=== PATIENT | male | born 1945 | race Caucasian/White ===

== ENCOUNTER → 2018-08-22 | Outpatient (CLI) | payer OTHER | LOC: FIMAGING 10:09 | PROVIDERS: ATTEND Specialist | DX: N20.0 Calculus of kidney (principal); R93.5 Abnormal findings on diagnostic imaging of other abdominal regions, including retroperitoneum ==

== ENCOUNTER 2018-11-05 07:45 | Inpatient (IN) | payer OTHER ==
[2018-11-05] MEDS ORDERED: NALOXONE HCL 0.4 MG/ML INJ IVP PRN (07:49)
[2018-11-05] MEDS ORDERED: fentaNYL 100 MCG/2 ML INJ IVP PRN (07:49)
[2018-11-05] MEDS ORDERED: MEPERIDINE 25 MG/ML SYR IVP PRN (07:49)
[2018-11-05] MEDS ORDERED: FLUMAZENIL 0.5 MG/5 ML MDV IVP PRN (07:49)
[2018-11-05] MEDS ORDERED: MIDAZOLAM 2 MG/2 ML VIAL IVP PRN (07:49)
[2018-11-05] MEDS ORDERED: NS 1,000 ML IV SCH (08:00)
[2018-11-05 08:47] LABS: INR 1.03 (0.83-1.16); PROTIME(PATIENT) 13.7 SEC (12.0-15.0)
[2018-11-05] MEDS ORDERED: diphenhydrAMINE 50 MG CAP PO ONE (08:55)
--- NOTE | 2018-11-05 09:00 | PDPROPOC ---
Sedation Plan of Care ASA Classification: ASA 2 Mallampati Score: Class 2 Mallampati Reference Image:
--- NOTE | 2018-11-05 09:00 | PDRADPRE ---
Radiology History & Physical Indication for procedure: other (kidney stone) Home medications: Finasteride [Proscar 5 MG (*)] 5 mg PO DAILY 11/06/16 [Last Taken Unknown] Ibuprofen [Motrin (*)] 200 mg PO DAILY PRN 11/06/16 [Last Taken Unknown] Potassium Citrate [Urocit-K 10meq (*)] 20 meq PO DAILY 11/06/16 [Last Taken Unknown] Glucosamine Sulfate [Glucosamine Sulfate 500 MG (*)] 500 mg PO DAILY 10/28/18 [ Last Taken Unknown] Herbals/Supplements -Info Only 1 ea PO DAILY 10/28/18 [Last Taken Unknown] Allergies/Adverse Reactions: IVP dye Allergy (Uncoded 11/06/16 11:20) Swelling/neck,face,throat Mental status: A&Ox3
[2018-11-05] MEDS ORDERED: NALOXONE HCL 0.4 MG/ML INJ ONE (09:12)
[2018-11-05] MEDS ORDERED: FLUMAZENIL 0.5 MG/5 ML MDV IVP ONE (09:13)
[2018-11-05] MEDS ORDERED: fentaNYL 100 MCG/2 ML INJ ONE ×2 (09:13→11:17)
[2018-11-05] MEDS ORDERED: MIDAZOLAM 2 MG/2 ML VIAL ONE ×2 (09:14→11:18)
[2018-11-05] MEDS ORDERED: ACETAMINOPHEN 325 MG TAB PO PRN ×2 (11:57→15:12)
[2018-11-05] MEDS ORDERED: ONDANSETRON 4 MG/2 ML VIAL IVP PRN (11:57)
[2018-11-05] MEDS ORDERED: OXYCODONE/APAP 5/325 TAB ONE (12:46)
[2018-11-05] MEDS: OXYCODONE/APAP 5/325 TAB PO PRN (12:46)
--- NOTE | 2018-11-05 13:02 | PDRADPN ---
Radiology Procedure Note Date of Procedure: 11/05/18 Radiologist: Mary Schilling Anesthesia: IV Sedation Pre-op Diagnosis: renal stones Post-op Diagnosis: same Procedure: left nephrostomy placement Inf/Abcess present in the surg proc area at time of surgery?: No
[2018-11-05] MEDS ORDERED: LIDOCAINE 1% 300 MG/30 ML SDV ONE (13:32)
[2018-11-05] MEDS ORDERED: ONDANSETRON DISINTEGRATING 4 MG TAB PO PRN (15:12)
--- NOTE | 2018-11-05 15:25 | PDGENHP ---
History and Physical - Chief Complaint Uncontrolled Pain - History of Present Illness Mr. Jose Shipley is a 73 yo M with a PMHx of nephrolithiasis who [facility] after percutaneous nephrostomy tube placement by IR this afternoon. He reports that he has a long hx of nephrolithiasis. In July he began to have L sided flank pain while on vacation in [place]. He had this kidney stone "blasted per patient". Flank pain continued, CT scans showed b/l nephrolithiasis. He had percutaneous nephrostomy tube placed on L side today by IR with plans for Urology to perform stone extraction tomorrow. Plan for R sided stones to be removed in future. Patient currently at 7/10 pain after 5 mg Percocet. Pain is sharp L sided, non-radiating. He denies chest pain, SOB, n/v, d/c, edema, headache, dysuria, hematuria. He reports hx of constipation with narcotics in the past. History Information - Allergies/Home Medication List Allergies/Adverse Reactions: IVP dye Allergy (Uncoded 11/06/16 11:20) Swelling/neck,face,throat Home Medications: Finasteride [Proscar 5 MG (*)] 5 mg PO DAILY 11/06/16 [Last Taken Unknown] Ibuprofen [Motrin (*)] 200 mg PO DAILY PRN 11/06/16 [Last Taken Unknown] Potassium Citrate [Urocit-K 10meq (*)] 20 meq PO DAILY 11/06/16 [Last Taken Unknown] Glucosamine Sulfate [Glucosamine Sulfate 500 MG (*)] 500 mg PO DAILY 10/28/18 [ Last Taken Unknown] Herbals/Supplements -Info Only 1 ea PO DAILY 10/28/18 [Last Taken Unknown] I have personally reviewed and updated: family history, medical history, social history, surgical history - Past Medical History Additional medical history: nephrolithiasis - Surgical History Reports: no pertinent surgical hx - Family History Positive for: non-pertinent - Social History Smoking Status: Never smoked Review of Systems Review of Systems: ROS: 10pt was reviewed & negative except for what was stated in HPI & below Physical Exam Physical Exam: Temp Pulse Resp BP Pulse Ox 36.7 C 101 H 16 131/84 H 94 11/05/18 13:49 11/05/18 13:49 11/05/18 13:49 11/05/18 14:17 11/05/18 14:17 O2 (L/minute) 2 Constitutional: uncomfortable Eyes: PERRL Ears, Nose, Mouth, Throat: moist mucous membranes Cardiovascular: regular rate and rhythym Respiratory: no respiratory distress Gastrointestinal: soft, non-tender abdomen Genitourinary: no bladder tenderness, other (Perc Nephrostomy tube on L side) Musculoskeletal: full muscle strength Neurologic: AAOx3 Psychiatric: interacting appropriately Lab Data & Imaging Review 11/05/18 14:03 11/05/18 08:20 Hgb 15.8 g/dL (13.7-17.5) 11/05/18 14:03 Hct 45.7 % (40.0-51.0) 11/05/18 14:03 Plt Count 199 10^3/uL (150-400) 11/05/18 08:20 PT 13.7 SEC (12.0-15.0) 11/05/18 08:20 INR 1.03 (0.83-1.16) 11/05/18 08:20 APTT 29.3 SEC (23.0-38.0) 11/05/18 08:20 Creatinine 1.1 mg/dL (0.7-1.3) 11/05/18 08:20 Estimated GFR > 60 11/05/18 08:20 Assessment & Plan Assessment: Uncontrolled Pain s/p - S/p L Percutaneous nephrostomy tube placement today by IR, discussed with Dr. Schilling this afternoon for admission - Will order PRN IV (Morphine 2-4 mg q4 hrs) and PO Pain (Percocet 5-10 mg q4 hrs) medications for pain control Nephrolithiasis - S/p L Percutaneous nephrostomy tube placement today by IR - Plan for urology to perform stone extraction tomorrow - CBC and BMP ordered, continue to trend H/H per IR - NPO at midnight - IVF overnight FEN: IVF overnight, NPO after midnight Code: FULL DVT PPx: SCDs Dispo: Pending urological procedure tomorrow, admit to observation
[2018-11-05] MEDS ORDERED: POLYETHYLENE GLYCOL 3350 17 GM PKT PO PRN (15:59)
[2018-11-05] MEDS ORDERED: BISACODYL 10 MG SUPP PR PRN (15:59)
[2018-11-05] MEDS ORDERED: LACTULOSE 20 GM/30 ML UDCUP PO PRN (15:59)
[2018-11-05] MEDS ORDERED: MAGNESIUM HYDROXIDE 30 ML UDCUP PO PRN (15:59)
[2018-11-05 16:16] LABS: PLATELET COUNT 167 10^3/uL (150-400)
[2018-11-05] MEDS: NS 1,000 ML IV SCH (18:33)
[2018-11-05] MEDS: SENNOSIDES/DOCUSATE SODIUM TAB PO SCH (20:21)
[2018-11-06] MEDS: NS 1,000 ML IV SCH ×2 (03:55→21:17)
[2018-11-06 05:15] LABS: PLATELET COUNT 173 10^3/uL (150-400)
[2018-11-06] MEDS ORDERED: NS 1,000 ML IV ONE (06:48)
[2018-11-06] MEDS ORDERED: MIDAZOLAM 2 MG/2 ML VIAL IVP ONE (07:05)
[2018-11-06] MEDS ORDERED: MINERAL OIL 10 ML VIAL ONE (07:11)
[2018-11-06] MEDS ORDERED: IOPAMIDOL (ISOVUE-300) 100 ML BTL ONE (07:11)
[2018-11-06] MEDS ORDERED: MIDAZOLAM 2 MG/2 ML VIAL ONE (07:16)
[2018-11-06] MEDS ORDERED: PROPOFOL 200 MG/20 ML VIAL ONE (07:17)
[2018-11-06] MEDS ORDERED: fentaNYL 100 MCG/2 ML INJ ONE ×3 (07:17→10:48)
[2018-11-06] MEDS ORDERED: ROCURONIUM 50 MG/5 ML VIAL ONE (07:18)
[2018-11-06] MEDS ORDERED: LIDOCAINE 2% 5 ML SDV ONE (07:18)
--- NOTE | 2018-11-06 07:25 | PDHPUP ---
History & Physical Update H&P update statement: This history and physical update is based on an assessment of the patient which was completed after admission or registration (within 24 hours), but prior to the surgery/procedure. H&P update: changes noted (Admitted last night for pain control)
--- NOTE | 2018-11-06 08:09 | PDANEPAE ---
ANE History of Present Illness Kidney stones ANE Past Medical History - Cardiovascular History Hx Hypertension: No Hx Arrhythmias: No Hx Chest Pain: No Hx Coronary Artery / Peripheral Vascular Disease: No Hx CHF / Valvular Disease: No Hx Palpitations: No - Pulmonary History Hx COPD: No Hx Asthma/Reactive Airway Disease: No Hx Recent Upper Respiratory Infection: No Hx Oxygen in Use at Home: No Hx Sleep Apnea: No Sleep Apnea Screening Result - Last Documented: Positive - Neurologic History Hx Cerebrovascular Accident: No Hx Seizures: No Hx Dementia: No - Endocrine History Hx Diabetes: No - Renal History Hx Renal Disorders: No Renal History Comment: several kidney stones - takes K+ - Liver History Hx Hepatic Disorders: No - Neurological & Psychiatric Hx Hx Neurological and Psychiatric Disorders: No - Cancer History Hx Cancer: No - Congenital Disorder History Hx Congenital Disorders: No - GI History Hx Gastrointestinal Disorders: No - Other Health History Other Health History: R inguinal hernia repair - Chronic Pain History Chronic Pain: No - Surgical History Prior Surgeries: T and A-child,. lithotripsy. ING HERNIA DENA. URETEROSCOPY ANE Review of Systems Review of Systems: - Exercise capacity METS (RN): 4 METS ANE Patient History - Allergies Allergies/Adverse Reactions: IVP dye Allergy (Uncoded 11/06/16 11:20) Swelling/neck,face,throat - Home Medications Home medications: home medication list seen and reviewed Home Medications: Finasteride [Proscar 5 MG (*)] 5 mg PO DAILY 11/06/16 [Last Taken Unknown] Ibuprofen [Motrin (*)] 200 mg PO DAILY PRN 11/06/16 [Last Taken Unknown] Potassium Citrate [Urocit-K 10meq (*)] 20 meq PO DAILY 11/06/16 [Last Taken Unknown] Glucosamine Sulfate [Glucosamine Sulfate 500 MG (*)] 500 mg PO DAILY 10/28/18 [ Last Taken Unknown] Herbals/Supplements -Info Only 1 ea PO DAILY 10/28/18 [Last Taken Unknown] - NPO status NPO Status: no food or drink >8 hours NPO Since - Liquids (Date): 11/06/18 NPO Since - Liquids (Time): 00:00 NPO Since - Solids (Date): 11/06/18 NPO Since - Solids (Time): 00:00 - Anes Hx Anes Hx: no prior problems - Smoking Hx Smoking Status: Never smoked - Family Anes Hx Family Hx Anesthesia Complications: NEG ANE Labs/Vital Signs - Labs Result Diagrams: 11/06/18 05:00 11/05/18 19:10 - Vital Signs Blood Pressure: 133/83 Heart Rate: 90 Respiratory Rate: 18 O2 Sat (%): 94 Height: 177.8 cm Weight: 83.915 kg ANE Physical Exam - Airway Neck exam: FROM Mallampati Score: Class 2 Mouth exam: normal dental/mouth exam - Pulmonary Pulmonary: no respiratory distress - Cardiovascular Cardiovascular: regular rate and rhythym - ASA Status ASA Status: II ANE Anesthesia Plan Anesthesia Plan: general endotracheal anesthesia (in prone position)
--- NOTE | 2018-11-06 08:53 | ASMTCMCOM ---
CM Note CM Note Notes: Pt is a 73 y/o man admitted for uncontrolled pain after having a percutaneous nephrostomy tube placed by IR. Pt has a long hx of nephrolithiasis. Therapies have been ordered and awaiting recommendations. Needs are TBD at this time. CM to follow. Plan: TBD Date Signed: 11/06/2018 08:53 AM Electronically Signed By:PHILLIP Allen
--- NOTE | 2018-11-06 09:30 | HOSPPROG ---
Hospitalist Progress Note Assessment/Plan: Nephrolithiasis - S/p L Percutaneous nephrostomy tube placement yest by IR - lithotripsy today per urology, still some retained stones Leukocytosis - wbc's 16K, no ua prior to procedure, concern for infection - ceftriaxone given reagan-operatively ~11:00 - send ua / UCx (UA abnl, cont ceftriaxone while awaiting Cx data, sub-optimal sample, drawn from braga bag) Code: FULL DVT PPx: SCDs Dispo: change to inpt for ongoing management of obstructing nephrolithiasis Subjective: Pt feels ok. Pain controlled after morphine. No fevers or chills. No N/V. Denies flank pain. No CP or SOB. Objective: Vital Signs Temp Pulse Resp BP Pulse Ox 36.8 C 90 18 133/83 H 94 11/06/18 06:49 11/06/18 08:09 11/06/18 08:09 11/06/18 08:09 11/06/18 08:09 Laboratory Results 11/06/18 05:00 11/05/18 19:10 11/05/18 11/06/18 11/07/18 05:59 05:59 05:59 Intake Total 1680 Output Total 840 Balance 840 PT 13.7 SEC (12.0-15.0) 11/05/18 08:20 INR 1.03 (0.83-1.16) 11/05/18 08:20 - Physical Exam Constitutional: no apparent distress Eyes: PERRL Ears, Nose, Mouth, Throat: moist mucous membranes Cardiovascular: regular rate and rhythym Respiratory: no respiratory distress Gastrointestinal: normoactive bowel sounds, soft, non-tender abdomen Skin: warm Musculoskeletal: full muscle strength Neurologic: AAOx3 Psychiatric: interacting appropriately ICD10 Worksheet Patient Problems: Problems Problem Status Onset Nephrolithiasis Acute - ICD10 Problem Qualifiers (1) Nephrolithiasis
[2018-11-06] MEDS ORDERED: ONDANSETRON 4 MG/2 ML VIAL ONE (09:40)
[2018-11-06] MEDS ORDERED: HYDROmorphONE/DILAUDID 2 MG/ML INJ IVP PRN (09:42)
[2018-11-06] MEDS ORDERED: ONDANSETRON 4 MG/2 ML VIAL IVP PRN ×2 (09:42→10:33)
[2018-11-06] MEDS ORDERED: PROMETHAZINE HCL 25 MG/ML INJ IVP PRN (09:42)
[2018-11-06] MEDS ORDERED: fentaNYL 100 MCG/2 ML INJ IVP PRN (09:42)
[2018-11-06] MEDS ORDERED: NALOXONE HCL 0.4 MG/ML INJ IVP PRN (09:42)
[2018-11-06] MEDS ORDERED: SUGAMMADEX SODIUM 200 MG/2 ML VIAL IVP ONE (09:51)
--- NOTE | 2018-11-06 10:11 | POSTANESTH ---
Post Anesthetic Evaluation Cardiovascular Status: Similar to Pre-Op Cond Respiratory Status: Similar to Pre-op Cond. Level of Consciousness/Mental Status: Alert and Oriented Pain Control: Adequate, Prn Tx Ordered Nausea/Vomiting Control: Adequate, Prn Tx Ordered Complications Possibly Related to Anesthesia: None Noted
--- NOTE | 2018-11-06 10:30 | POSTOPPROG ---
Post Op Note Date of Operation: 11/06/18 Surgeon: Adonis Horton (# [id number]) Anesthesia: GET(General Endotracheal) Pre-op Diagnosis: Large volume left nephrolithiasis Post-op Diagnosis: Large volume left nephrolithiasis Procedure: Left PCNL Findings: See op note Inf/Abcess present in the surg proc area at time of surgery?: No EBL: 50-100 (50 cc) Complications: None Drains: Nephrostomy (14 Fr.) Specimen(s): None
[2018-11-06] MEDS: SENNOSIDES/DOCUSATE SODIUM TAB PO SCH ×3 (12:02→22:03)
--- NOTE | 2018-11-06 12:05 | GOP ---
DATE OF OPERATION: 11/06/2018 SURGEON: Adonis Horton MD ANESTHESIA: General endotracheal. PREOPERATIVE DIAGNOSIS: Large volume left nephrolithiasis. POSTOPERATIVE DIAGNOSIS: Large volume left nephrolithiasis. PROCEDURE PERFORMED: Left percutaneous nephrostolithotomy with intraoperative fluoroscopic guidance greater than 1 hour. FINDINGS: Fairly disrupted calyceal urothelial mucosa that was evident immediately upon insertion of the rigid nephroscope. Also noted were multiple renal infundibula that were abnormally long and extremely small in diameter making access & stone visualization during this case difficult. SPECIMENS: None. ESTIMATED BLOOD LOSS: Approximately 50 cc. INDICATIONS: This gentleman has been found to have multiple left renal calculi that collectively measured in volume greater than 2 cm. After discussing management options, we have decided to proceed with intraoperative left-sided percutaneous nephrostolithotomy. Nephrostomy tube was placed by Interventional Radiology yesterday. The patient presents to the operating today for definitive management. The indications for the procedures, as well as potential risks and complications, were discussed with the patient preoperatively. He appeared to understand, his questions were answered, and he wished to proceed. Written informed surgical consent was thereafter obtained. DESCRIPTION OF PROCEDURE: The patient was brought to the operating room and administered general endotracheal anesthesia. A Ching catheter was placed to gravity drainage. The patient was placed carefully in a prone position with all appropriate pressure points padded. The left side of his back and nephrostomy tube were sterilely prepped and draped in standard fashion. Dr. Schilling from Interventional Radiology then proceeded to place a working 32- Macedonian nephroscopic sheath through the lower pole access. I then began my portion of the procedure using a rigid nephroscope. Upon entering the kidney through this sheath, it was quickly noted that the collecting system urothelium was disrupted in multiple locations. I was ultimately able to identify what appeared to be the renal pelvis. From preoperative imaging obtained yesterday at the time of nephrostomy tube placement, the renal pelvis was noted to be very small. The patient was also noted on preoperative antegrade nephrostogram to have multiple calculi sitting in terminal calices that were being drained by long very and small-caliber, narrow infundibuli. Also based on the preoperative interventional radiology imaging obtained yesterday, the patient had a long narrow infundibulum that resulted in a bifid pelvis that drained the upper pole calices separately. After spending some time looking with the rigid nephroscope, I was unable to identify any of the calculi. I then proceeded with flexible nephroscopy through the nephroscopic access. I was ultimately able to identify what appeared to be ostia to multiple infundibula. These infundibula were again noted to be quite small in diameter and would not accommodate the flexible cystoscope. I then temporarily inserted the flexible ureteroscope, but I was unable to get adequate irrigation flow through this smaller working channel in order to visualize the working space. I then returned to the flexible cystoscope and utilized it to ultimately identify one of the lower pole calyceal calculi. I used a 325 micron holmium laser to fragment this calculus into minute pieces. This calculus was probably just under 1 cm in diameter initially. Multiple other radiopaque calculi were seen on spot C-arm fluoroscopic imaging, but I was unable to either identify the infundibula leading to these calculi nor enter the infundibula that I was able to visualize due to their excessively small diameter. At this point, I decided to terminate the percutaneous nephrostolithotomy portion of procedure. It should be mentioned that spot C-arm fluoroscopic imaging was utilized to help guide the location of my working instruments. Dr. Schilling from Interventional Radiology then proceeded to place a 14-Macedonian nephrostomy tube within the left kidney. I then secured the nephrostomy tube to the skin with a 2-0 silk suture. The nephrostomy tube was then secured to the skin with dressings and tape, followed by a nephrostomy bag. The patient was then transferred back over to the supine position, extubated, transferred to his bed, then taken to recovery room. He tolerated the procedure well overall. Indwelling Ching catheter was also kept in place. COMPLICATIONS: None. DISPOSITION: He was transferred to the recovery room in stable condition. /[id number]/MODL MTDD
--- NOTE | 2018-11-06 12:40 | PDMN ---
Medical Necessity Medical necessity: Pt meets IP criteria as of 11/06/2018 per MD and MCG [id number] ( Kidney Stones); los > 2 mn for ongoing tx and management of nephrolithiasis with leukocytosis s/p percutaneous nephrostomy tube placement 11/05/18; requiring lithotripsy per urology, IVF, IV ABX, IV pain control, and therapies.
[2018-11-06] MEDS: OXYCODONE/APAP 5/325 TAB PO PRN (18:35)
[2018-11-07] MEDS: NS 1,000 ML IV SCH (05:08)
[2018-11-07 05:21] LABS: PLATELET COUNT 160 10^3/uL (150-400)
--- NOTE | 2018-11-07 08:00 | SOAPPROG ---
SOAP Progress Note Assessment/Plan: Assessment: POD 1 s/p left PCNL - stable. Plan: 1. Should be ready for discharge today. 2. He needs to have date & time arranged before discharge for outpatient nephrostogram and nephrostomy tube removal through IR next . or Sat. 3. FU w/ me in 1 month. w/ renal ultrasound. Subjective: c/o constipation. Objective: Vital Signs Temp Pulse Resp BP Pulse Ox 36.7 C 75 18 136/63 H 94 11/07/18 05:05 11/07/18 05:05 11/07/18 05:05 11/07/18 05:05 11/07/18 05:05 Laboratory Results 11/07/18 04:50 11/07/18 04:50 11/06/18 11/07/18 11/08/18 05:59 05:59 05:59 Intake Total 1680 1650 Output Total 840 2075 Balance 840 -425 PT 13.7 SEC (12.0-15.0) 11/05/18 08:20 INR 1.03 (0.83-1.16) 11/05/18 08:20 Physical Exam - Physical Exam General Appearance: WD/WN, alert, no apparent distress Abdomen: soft Male Genitalia: other (urine clear via Ching) Back: Other (urine clearing via neph. tube) Skin: warm/dry Extremities: normal inspection Neuro/Psych: alert, normal mood/affect, oriented x 3 ICD10 Worksheet Patient Problems: Problems Problem Status Onset Nephrolithiasis Acute
[2018-11-07] MEDS ORDERED: MAGNESIUM HYDROXIDE 30 ML UDCUP PO PRN (08:03)
[2018-11-07] MEDS ORDERED: LACTULOSE 20 GM/30 ML UDCUP PO PRN (08:03)
[2018-11-07] MEDS ORDERED: BISACODYL 10 MG SUPP PR PRN (08:03)
[2018-11-07] MEDS ORDERED: POLYETHYLENE GLYCOL 3350 17 GM PKT PO PRN (08:03)
[2018-11-07 08:56] VITALS: BP 149/89
[2018-11-07] MEDS ORDERED: SENNOSIDES/DOCUSATE SODIUM TAB PO SCH (09:00)
--- NOTE | 2018-11-07 10:58 | ASMTLACE ---
JACKELYN Length of stay for Answers: 1 day current admission Acuity / Level of Answers: Yes Care: Did the patient have an inpatient admission? # of Emergency department Answers: 0 visits in the last 6 months Score: 4 Date Signed: 11/07/2018 10:58 AM Electronically Signed By:Dena Conner RN
--- NOTE | 2018-11-07 20:49 | GDS ---
DISCHARGE DIAGNOSES: 1. Nephrolithiasis status post left percutaneous nephrostomy tube placement as well as a left percut aneous nephrostolithotomy performed by Dr. Horton. 2. Presumed upper urinary tract infection with leukocytosis and abnormal urinalysis with significant pyuria. CONSULTANTS: 1. Dr. Tom Horton, Urology. 2. Dr. Mary Schilling, Interventional radiology. HISTORY OF DETAILS: Please see history and physical dated November 05, 2018. In brief, the patient i s a 73-year-old male with a history of nephrolithiasis, who underwent outpatient nephrostomy tube rocío cement on the day of admission; and due to severe postop pain, he was admitted to the hospital for pa in control and further management. HOSPITAL COURSE: The patient admitted to the Med/Surg Urology Unit. Nephrostomy tube was placed by Interventional Radiology. It was draining appropriately. He did receive perioperative dose of IV ce ftriaxone. It was noted [place] [id number] on arrival. Urinalysis wa s not performed prior to or during the procedure. UA was obtained after this and also after he recei yolanda IV antibiotics. There was some concern for infection with his significant leukocytosis and marke d pyuria on his UA with 50-182 white cells, as well as bacteria. He had no fevers or signs of sepsis . His urine culture is no growth to date. However, he will complete a short treatment course of ant ibiotics due to the concern for infection, acknowledging his urinalysis was drawn late in his hospita l course after antibiotics were initiated. He will complete 4 more days of oral Levaquin at hospital discharge. We did review the risk of tendon rupture and C diff. As described above, he underwent n ephrostolithotomy by Dr. Horton, and a large subcentimeter stone was identified. However, several ot her stones were not identified during the procedure. He will be discharged home with his nephrostomy tube in place and close outpatient followup with Dr. Horton. He is also scheduled for removal of hi s nephrostomy tube early next week by Interventional Radiology. DISPOSITION: Patient is discharged home in stable condition. FOLLOWUP: 1. Interventional Radiology November 12, for nephrostomy tube removal and nephrostogram. 2. Dr. Tom Horton in 2 weeks. DISCHARGE MEDICATIONS: Please see [employer] completed outpatient medication list. New medications on discharge include Tylenol 650 mg p.o. q.4 hours p.r.n. pain; Levaquin 750 mg p.o. daily #4; no refil ls. He will continue all other outpatient medications as previously prescribed. /[id number]/MODL
== END 2018-11-07 11:45 | disposition home or self-care (01) | DRG 940 ==
LOC: FIMAGING 07:45 → F3E 15:14 → F1N 17:36 → OBSVTOIN 11-06 09:30
PROVIDERS: ADMIT Internal Medicine; ATTEND Specialist
PROC: 0T143JD Bypass Left Kidney Pelvis to Cutaneous with Synthetic Substitute, Percutaneous Approach (ICD-10-PCS; principal; 2018-11-05 13:40)
PROC: 0TF44ZZ Fragmentation in Left Kidney Pelvis, Percutaneous Endoscopic Approach (ICD-10-PCS; 2018-11-06)
PROC: 0T143JD Bypass Left Kidney Pelvis to Cutaneous with Synthetic Substitute, Percutaneous Approach (ICD-10-PCS; 2018-11-06)
DX: G89.18 Other acute postprocedural pain (principal); N39.0 Urinary tract infection, site not specified; N20.0 Calculus of kidney
CPT/HCPCS: C1725; C1729; C1769; C1894; J0696; J2250; J2270; J2310; J2405; J2704; J3010; Q9967

== ENCOUNTER → 2018-11-12 | Day surgery (SDC) | payer OTHER ==
[~2018-11-12] MED LIST: IOPAMIDOL (ISOVUE-300) 100 ML BTL ONE
== END | disposition home or self-care (01) ==
LOC: FIMAGING 14:09
PROVIDERS: ATTEND Radiology Diagnostic Radiology
PROC: BT141ZZ Fluoroscopy of Kidneys, Ureters and Bladder using Low Osmolar Contrast (ICD-10-PCS; principal; 2018-11-12)
DX: Z43.6 Encounter for attention to other artificial openings of urinary tract (principal); R93.41 Abnormal radiologic findings on diagnostic imaging of renal pelvis, ureter, or bladder; N20.0 Calculus of kidney
CPT/HCPCS: Q9967

== ENCOUNTER → 2018-12-01 | Outpatient (CLI) | payer OTHER | LOC: FIMAGING 09:50 | PROVIDERS: ATTEND Specialist | DX: N20.0 Calculus of kidney (principal) ==